=== PATIENT | female | born 1995 | race Hispanic/Latino ===

== ENCOUNTER 2021-12-14 09:23 | Emergency (ER) | payer OTHER, SELFPAY ==
[~2021-12-14] VITALS: Ht 172.7 cm; Wt 120.2 kg
[2021-12-14] MEDS ORDERED: MINERAL OIL 473 ML BTL AS STA (10:30)
[2021-12-14] MEDS ORDERED: OFLOSO AS (12:19)
[2021-12-14 12:26] VITALS: BP 127/73
== END 2021-12-14 12:36 | disposition home or self-care (01) ==
LOC: M ED 09:23
DX: S00.452A Superficial foreign body of left ear, initial encounter (principal); W57.XXXA Bitten or stung by nonvenomous insect and other nonvenomous arthropods, initial encounter